=== PATIENT | male | born 1960 | race African-American/Black ===

== ENCOUNTER 2017-11-16 01:54 | Emergency (ER) | payer BC ==
[~2017-11-16] VITALS: Ht 193 cm; Wt 116.0 kg
[2017-11-16] MEDS ORDERED: KETOROLAC 30MG/ML VIAL IV STA (04:37)
[2017-11-16] MEDS ORDERED: ONDANSETRON HCL 4MG/2ML VIAL IV STA (04:37)
[2017-11-16] MEDS ORDERED: SODIUM CHLORIDE 0.9% 1,000 ML IV ONE (04:37)
[2017-11-16] MEDS ORDERED: DEXAMETHASONE 4MG/ML 1ML VIAL IM ONE (04:45)
[2017-11-16] MEDS ORDERED: CEFTRIAXONE 1 G PREMIX 50 ML IV ONE (04:45)
[2017-11-16 05:02] LABS: BASOPHILS % 0.4 % (0.0-2.0); EOSINOPHILS % 0.2 % (0.0-5.0); HEMATOCRIT. 40.4 % (42.0-52.0); HEMOGLOBIN. 13.9 g/dL (14.0-18.0); LYMPHOCYTES % 15.9 % (20.0-50.0); MEAN CORPUSCULAR VOLUME 92.7 fL (80.0-94.0); MEAN PLATELET VOLUME 8.2 fl (7.4-10.4); MONOCYTES % 11.1 % (2.0-8.0); NEUTROPHILS % 72.4 % (40.0-76.0); PLATELET 258 x1000/uL (130-400); RED BLOOD CELL COUNT 4.35 mill/uL (4.7-6.1); RED CELL DISTRIBUTION WIDTH 13.1 % (11.6-14.6)
[2017-11-16 05:05] LABS: CHLORIDE 104 mEq/L (98-107)
[2017-11-16 05:06] LABS: INR 1.1; PROTHROMBIN TIME 11.3 sec (9.4-11.6)
[2017-11-16] MEDS ORDERED: DEXAMETHASONE 4MG/ML 1ML VIAL ONE (05:24)
[2017-11-16 06:10] VITALS: BP 133/81
== END 2017-11-16 07:05 | disposition home or self-care (01) ==
LOC: ER 02:12
DX: J36 Peritonsillar abscess (principal); I10 Essential (primary) hypertension
CPT/HCPCS: 36415; 80053; 85025; 85610; 96365; 96372; 96375; 99284; J0696; J1100; J1885; J2405; J7030; Z7610

== ENCOUNTER → 2021-05-27 | Day surgery (SDC) | payer BC ==
[~2021-05-27] MED LIST: ACETAMINOPHEN 325MG TABLET PO PRN; AMIO100T4 PO; APIX5TAB PO; DIGO250T79 PO; DOXA1TAB2 PO; FELO10TA45 PO; FENTANYL CITRATE/PF 50MCG/ML 2ML VIAL ONE; LIDOCAINE HCL 2% JELLY 5ML ONE; METO-539 PO; MIDAZOLAM HCL 2 MG/2 ML VIAL ONE; ONDANSETRON HCL 4MG/2ML INJ IV PRN; TETRACAINE/BENZOCAINE/BUTAMBEN 20 GM SPRAY MM ONE
== END | disposition home or self-care (01) ==
LOC: CCL 06:41
PROVIDERS: ATTEND Specialist
DX: I48.92 Unspecified atrial flutter (principal); I48.20 Chronic atrial fibrillation, unspecified; I08.0 Rheumatic disorders of both mitral and aortic valves; I10 Essential (primary) hypertension; I25.10 Atherosclerotic heart disease of native coronary artery without angina pectoris; N40.0 Benign prostatic hyperplasia without lower urinary tract symptoms; Z79.01 Long term (current) use of anticoagulants; Z79.899 Other long term (current) drug therapy; Z82.49 Family history of ischemic heart disease and other diseases of the circulatory system; Z88.0 Allergy status to penicillin; Z88.8 Allergy status to other drugs, medicaments and biological substances; Z98.890 Other specified postprocedural states
CPT/HCPCS: 92960; 93005; 93312; J2250; J3010